=== PATIENT | female | born 1950 | race Caucasian/White ===

== ENCOUNTER 2020-11-12 11:09 | Emergency (ER) | payer MEDICARE, MEDICAID, SELFPAY ==
[2020-11-12 11:08] VITALS: BP 154/83; PULSE 58; RESP 16; TEMP 37.1; O2SAT 97
--- NOTE | 2020-11-12 11:52 | ED.EYEPROB ---
HPI - Eye Problem General Chief complaint: Eye Problems <KARINE Avelar Last Filed: 11/12/20 12:05> Stated complaint: redness to eye <KARINE Avelar Last Filed: 11/12/20 12:05> Time Seen by Provider: 11/12/20 11:14 <KARINE Avelar Last Filed: 11/12/20 12:05> Source: patient and EMS <KARINE Avelar Last Filed: 11/12/20 12:05> Mode of arrival: EMS <KARINE Avelar Last Filed: 11/12/20 12:05> Limitations: dementia <KARINE Avelar Last Filed: 11/12/20 12:05> History of Present Illness HPI Narrative: This is a 69 year old female that presents to the ER for left eye irritation present over the last couple of days. Patient with history of dementia so is poor historian. She does have a contact present in this eye with conjunctival injection and tearing. Sent to the ED for evaluation of eye irritation via EMS from nursing facility. Denies fevers. <KARINE Avelar Last Filed: 11/12/20 12:05> Related Data Home medications: Home Medications Medication Instructions Recorded Confirmed acetaminophen 325 mg PO 6XD PRN 11/12/20 donepezil 5 mg PO HS 11/12/20 gabapentin 100 mg PO TID 11/12/20 nicotine 1 patch TRANSDERMAL DAILY 11/12/20 tramadol PO PRN 11/12/20 <KARINE Avelar Last Filed: 11/12/20 12:05> Allergies/adverse reactions: Allergies Allergy/AdvReac Type Severity Reaction Status Date / Time Penicillins Allergy Unknown Verified 11/12/20 11:37 Tetanus Vaccines and Toxoid Allergy Unknown Verified 11/12/20 11:38 <KARINE Avelar Last Filed: 11/12/20 12:05> Review of Systems Review of Systems: Narrative: CONSTITUTIONAL: Denies fever EYES: Reports redness, and discharge. <KARINE Avelar Last Filed: 11/12/20 12:05> All systems reviewed & are unremarkable except as noted in HPI and below <Mara De La Cruz PA-C - Last Filed: 11/12/20 12:05> PMFSH Past Medical History Medical History: Medical History (Updated 11/12/20 @ 12:02 by Mara De La Cruz PA-C) History of dementia <Mara De La Cruz PA-C - Last Filed: 11/12/20 12:05> Social History Social History: Social History (Updated 11/12/20 @ 11:57 by Mara De La Cruz PA-C) Substance use: never <Mara De La Cruz PA-C - Last Filed: 11/12/20 12:05> Exam Narrative: Exam Narrative: GENERAL: Well-appearing, well-nourished, and in no acute distress. HEAD: Normocephalic, atraumatic. EYES: PERRLA and EOMI. Left eye with conjunctival injection and tearing. Contact is present in the left eye, no other foreign bodies noted. Positive fluorescein stain uptake, with small corneal abrasion of the left eye. Eye pressure is 9 bilaterally EXTREMITIES: Normal range of motion. No edema or erythema. Small (2.5cm) ulcer present to the left posterior calf. No surrounding erythema or abnormal drainage. Mildly diminished DP and posterior tibial pulses. Normal sensation SKIN: Warm, dry, no rash. NEURO: No focal deficits. Alert and oriented x3. PSYCH: Normal mood and affect <Mara De La Cruz PA-C - Last Filed: 11/12/20 12:05> Course Vital Signs Vital signs: Vital Signs Temperature 98.7 F 11/12/20 11:08 Pulse Rate 58 L 11/12/20 11:08 Respiratory Rate 16 11/12/20 11:08 Blood Pressure 154/83 H 11/12/20 11:08 Pulse Oximetry 97 11/12/20 11:08 Temperature 98.7 F 11/12/20 11:08 Pulse Rate 78 11/12/20 12:09 Respiratory Rate 15 11/12/20 12:09 Blood Pressure 152/74 H 11/12/20 12:09 Pulse Oximetry 99 11/12/20 12:09 <Mara De La Cruz PA-C - Last Filed: 11/12/20 12:05> Vital Signs Temperature 98.7 F 11/12/20 11:08 Pulse Rate 58 L 11/12/20 11:08 Respiratory Rate 16 11/12/20 11:08 Blood Pressure 154/83 H 11/12/20 11:08 Pulse Oximetry 97 11/12/20 11:08 Temperature 98.7 F 11/12/20 11:08 Pulse Rate 78 11/12/20 12:09 Respiratory Rate 15 11/12/20 12:09 Blood Pre
[2020-11-12 12:09] VITALS: BP 152/74; PULSE 78; RESP 15; O2SAT 99
[2020-11-12] MEDS: CIPROFLOXACIN HCL 0.3% OPHTH OINT 3.5 GM 1 APPLIC LEFT EYE (12:53)
== END 2020-11-12 12:53 | disposition home or self-care (01) ==
PROVIDERS: Emergency Provider General Practice; PCP Internal Medicine
DX: S05.02XA Injury of conjunctiva and corneal abrasion without foreign body, left eye, initial encounter (principal); L97.221 Non-pressure chronic ulcer of left calf limited to breakdown of skin; F03.90 Unspecified dementia, unspecified severity, without behavioral disturbance, psychotic disturbance, mood disturbance, and anxiety; X58.XXXA Exposure to other specified factors, initial encounter
CPT/HCPCS: 99283; A9270